=== PATIENT | female | born 1995 | race Caucasian/White ===

== ENCOUNTER 2024-06-27 13:18 | Emergency (ER) | payer OTHER, SELFPAY ==
[2024-06-27 13:18] VITALS: BMI 28.4
[2024-06-27 13:20] VITALS: BP 127/87
--- NOTE | 2024-06-27 15:00 | ED.GENMED ---
History of Present Illness
General
Chief Complaint: Musculo-Skeletal Complaint
Source: patient
Exam Limitations: none
Time Seen by Provider: 06/27/24 13:35
Nursing documentation reviewed up to this point in time: agreed with
History of Present Illness
History of Present Illness:
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
has been in remission since age 15
also was on synthroid
here with neck pain x 3 weeks
says her son jumped on her upper back/neck
since then she has had painful limited ROM of her neck, specifically extension and rotation with some pain into her upper arms b/l
sometime it feels like a burning sensation
she has no weakness/numbness/fever/heaache/swelling
she has only tried 2 doses of motrin for this pain
she thinks it is getting worse not better
she takes care of her on at home and doesn' work otherwise
she has noticed in the past few days that she has a nonpainful lump in the anterior neck
no troulbe swallowing or voice change
no fever/chills sore throat
isn't aware of having a goiter.
Past History
Past History
ED Past Medical History: None and Other (Hyperthyroidism, Dermatomyositis)
ED Past Surgical History: Cholecystectomy
Social History
Tobacco: Non-smoker
Alcohol: None
Personal: Other (Seperated)
Living: with family
Review of Systems
Review of Systems
Allergies reviewed?: Yes
All Other Systems: Not applicable
Phy Exam
Physical Exam
Physical Exam:
GENERAL: Alert , in no apparent distress
EYE: pupils equal and reactive
NECK: swelling anteriorly b/l thyroid gland nontender
normal swallowing
nontender midline
mild paraspinal tendnres and trap tenderness b/l with slightly limited extension and rotation but able to flex
ENT: o/p clr, mmm.
CARDIAC: Regular rate and rhythm .
LUNGS: Clear breath sounds bilaterally, no acute respiratory distress, no wheezes/rales/rhonchi
ABDOMEN: Soft, without focal tenderness, no r/g, no cvat, normal bowel sounds
NEUROLOGICAL: Alert and oriented, no focal neuro deficits
SKIN: Warm and dry, skin intact.
MUSCULOSKELETAL: No edema, well perfused. neg maira's sign
full arm ROM
nontender
normal strength
PSYCH: Normal and appropriate interaction.
Course
Orders/Labs/Results
Orders:
Orders
06/27/24 14:09
CT Cervical Spine W/o Iv Contr Urgent
Comment:
Reason For Exam: NECK PAIN AFTER SON JUMPED ON NECK
06/27/24 14:18
Free T4 Urgent
TSH Reflex To Free T4 Urgent
06/27/24 14:43
Ketorolac [Toradol] 30 mg IM NOW STA
06/27/24 15:02
CT Thoracic Spine W/o Iv Contr Urgent
Comment:
Reason For Exam: upper back/nekcp indira after son jumped on her
Abnormal Lab Results
06/27/24
14:18
TSH (Reflex) 4.76 H uIU/ml
(0.47-4.68)
Vital Signs
Initial and Last Documented VS:
Initial Vital Signs
Temp Pulse Resp BP Pulse Ox
37.1 C 96 18 127/87 98
06/27/24 13:20 06/27/24 13:20 06/27/24 13:20 06/27/24 13:20 06/27/24 13:20
Last Documented Vital Signs
Temp Pulse Resp BP Pulse Ox
37.1 C 84 16 118/81 99
06/27/24 13:20 06/27/24 16:00 06/27/24 16:00 06/27/24 16:00 06/27/24 16:00
MDM/Problems Addressed
Differential Diagnosis Includes:
cervical disc disease, spinal stensosis, cervial radiculopathy, trhyoiditis
MDM/Problems Addressed:
28 y/o F
h/o autoimmune dermatomyositis
no meds now
in remissino
son jumped on her back/neck and since she briones had pain
painful rom
no weakness
numbness
some pain into arms sometimes
also feels the front of her neck looks a little swollen but says it is better now than it was
she has not had any dizziness, vision chagnes, trouble swallowing voic echange, fever, weakness
she is well appearing
has some pain with ROM of the neck but decent preserved ROM
normal neuro exam
ful strength and sensation
i felt that her thyroid may be enlarged, bilobar but nontender
d/w ed attending
since pt has no PCP [facility] end tsh but unlikely to be emergent cause o yenifer nec pain
ct cervical spine c/w muscle spasm
which makes sense for clinical picture
thryoid that ws visucalized not enalrged and her tsh is borderline high so marcio miladisold on meds
pt is in th eprocess of getting pcp
nsaids
muscle relaxers
*Critical Care Note
Total Time (30-74mins, 75-104mins- exclusive of procedures): Not Applicable
ED Attending Note
-
Portions of this chart may have been created with voice recognition software.� Occasional wrong word or��sound alike� substitutions may have occurred due to the inherent limitations of voice recognition software.
Discharge Plan
Departure
Patient Disposition: Home (Routine Discharge)
Date of Disposition: 06/27/24
Time of Disposition: 16:13
Patient with high blood pressure during this ER visit?: No
Condition: Fair
Discharge Problem:
Enlarged thyroid, Neck pain
Instructions: Muscle Strain (DC)
Prescriptions:
New
cyclobenzaprine 10 mg tablet
10 mg PO HS PRN (Reason: MUSCLE SPASM) Qty: 10 0RF
ibuprofen 600 mg tablet
600 mg PO Q8H PRN (Reason: Pain) Qty: 20 0RF
Referrals:
NONE,* [Family Provider] -
Activity Restrictions/Additional Instructions:
YOUR TSH IS MINIMALLY HIGH BUT YOUR T4 IS NORMAL SO RIGHT NOW WE ARE NOT STARTING MEDICATION
YOU SHOULD SEE A FAMILY DOCTOR TO TALK ABOUT THIS
ALSO YOU CAN HAVE AN ULTRASOUND OF YOUR THYROID AN OUTPATIENT
TAKE MOTRIN 600 MG EVERY 8HOURS NEEDED FOR PAIN FOR 3-5 DAYS
FOR MUSCLE RELAXER CYCLOBENZAPRINE 10 MG ONCE AT NIGHT BEFORE BED NEEDED
LIDOCAINE PATCH YOUR NECK
YOU MAY NEED PHYSICAL THERAPY
RETURN FOR: SEVERE PAIN, WEAKNESS IN ARMS OR LEGS, FEVER, NUMBNESS, PAINFUL THYROID, TROUBLE SWALLOWING OR ANY CONCERNS.
Interventions
Interventions:
*Risk Screen - Suicide Last Done: 06/27/24 13:20
*General Assessment Last Done: 06/27/24 13:20
*Neglect/Abuse Screening Last Done: 06/27/24 13:20
ED- Fall Risk Assessment Last Done: 06/27/24 13:48
*ED COVID-19 Vaccine History Last Done: 06/27/24 13:20
ED-Musculoskeletal Assessment Last Done: 06/27/24 13:48
Discharge Date and Time
Print Language: ESTONIAN
[2024-06-27] MEDS: TORADOL 30 MG IM (15:11)
[2024-06-27 15:18] LABS: TSH Reflex To Free T4 4.76 uIU/ml (0.47-4.68)
[2024-06-27 15:53] LABS: Free T4 1.17 ng/dl (0.78-2.19)
[2024-06-27 16:00] VITALS: BP 118/81
== END 2024-06-27 16:24 | disposition home or self-care (01) ==
LOC: EMR 13:18
PROVIDERS: Physician Assistant; EMERGENCY PHYSICIAN Emergency Medicine
DX: E04.9 Nontoxic goiter, unspecified (principal); M54.2 Cervicalgia; Z90.49 Acquired absence of other specified parts of digestive tract; Z87.39 Personal history of other diseases of the musculoskeletal system and connective tissue
CPT/HCPCS: 96372; 99284; 72125; 72128; 84439; 84443